=== PATIENT | male | born 1965 | race Caucasian/White ===

== ENCOUNTER 2024-04-30 17:25 | Emergency (ER) | payer OTHER, SELFPAY ==
[2024-04-30 17:28] VITALS: BP 155/96; PULSE 70; TEMP 36.7; O2SAT 99; BMI 31.5
--- NOTE | 2024-04-30 17:34 | PC.NURSE ---
right foot / ankle slightly larger then Left foot / ankle. ROM wnl and edema present in right foot.
--- NOTE | 2024-04-30 17:38 | XR_ITS ---
The [address] [address] Patient Name: XIAO NAVA MRN: [id number] date: 1965 Sex: M Assigned Patient Location: ER Current Patient Location: Accession/Order Number: [id number] Exam Date: 04/30/2024 18:00 Report Date: 04/30/2024 18:58 At the request of: PEDRO CLARK Procedure: XR foot RT min 3V EXAM: XR foot RT min 3V HISTORY: The patient is a 59-year-old male, right foot pain/swelling COMPARISON: None. FINDINGS: The right foot is radiographically negative with no evidence of fracture, dislocation, significant joint space narrowing, osteophytes, or other osseous or articular abnormalities. XR/XR foot RT min 3V IMPRESSION: Negative. Electronically authenticated by: WYATT WILSON Date: 04/30/2024 18:58
--- NOTE | 2024-04-30 17:40 | ED_ITS ---
HPI HPI - General Adult General Chief complaint: Extremity Injury, Lower Stated complaint: LE PAIN Time Seen by Provider: 04/30/24 17:29 Source: patient Mode of arrival: walk-in History of Present Illness HPI narrative: Patient is a 59-year-old male who presents to the emergency department for the evaluation of bilateral foot swelling, significantly worse on the right foot. Patient was referred to the emergency department by his PCP office for evaluation. He states 3 days ago he noted redness and swelling in the dorsum of the right foot. He states the ankle is now swollen although there is redness to the dorsum and lateral aspect of the right foot that is not present anywhere else. He denies any injuries or traumas. He states the right ankle is now swollen although not red. The dorsum of the left foot seems to be slightly swollen as well although he has not noticed any redness or red streaking to the foot. He has some pain in the right foot with extension of the foot at the ankle. 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 No fevers or vomiting. No history of diabetes. No medications taken prior to arrival. Related Data Previous Rx's ?Medication ?Instructions ?Recorded clindamycin HCl 150 mg capsule 300 mg (2 x 150 mg) PO Q6H 10 days 04/30/24 #80 caps ondansetron 4 mg disintegrating 4 mg PO Q6H PRN nausea and 04/30/24 tablet vomiting #12 tabs Allergies Allergy/AdvReac Type Severity Reaction Status Date / Time No Known Drug Allergies Allergy Verified 04/30/24 17:31 Opioid HPI Opioid Management Most Recent Opioid Data: No Data to Display Review of Systems ROS Constitutional Denies: fever or chills Ears, nose, mouth, and throat Denies: throat pain or nasal congestion Cardiovascular Denies: chest pain Respiratory Denies: shortness of breath or cough Gastrointestinal Denies: nausea or vomiting Musculoskeletal Denies: back pain Integumentary/Breast Reports: redness, skin pain, skin tenderness and skin swelling; Denies: rash Neurological Denies: numbness in extremities or weakness in extremities Hematologic/Lymphatic Denies: easy bruising or easy bleeding Exam Narrative Exam Narrative: Gen.: Awake, alert, in no distress Head: Normocephalic, atraumatic ENT: Moist mucous membranes Respiratory: No respiratory distress Extremities: Moves extremities equally, Minimal swelling of the dorsum of the left foot with 2+ left DP pulse. No redness or red streaking noted. Right foot is moderately swollen over the dorsum of the foot and moderately swollen in the right ankle. 2+ right DP pulse. Erythema noted from the lateral aspect of the dorsal right foot extending to the midfoot. No circumferential erythema or open wounds. No redness over the ankle joint. Normal flexion and extension of the toes of the right foot. Calves are soft and nontender Psych: Normal mood and affect Neuro: No focal neuro deficit Skin: Warm, dry, intact Constitutional Vital Signs, click to edit/add: Last Vital Signs Temp 98.0 F 04/30/24 17:28 Pulse 62 04/30/24 18:24 Resp 16 04/30/24 18:24 BP 131/86 04/30/24 18:24 Pulse Ox 98 04/30/24 18:24 O2 Del Method Room Air 04/30/24 17:28 Course Vital Signs Vital signs: Vital Signs Temperature 98.0 F 04/30/24 17:28 Pulse Rate 70 04/30/24 17:28 Respiratory Rate 16 04/30/24 17:28 Blood Pressure 155/96 H 04/30/24 17:28 Pulse Oximetry 99 04/30/24 17:28 Oxygen Delivery Method Room Air 04/30/24 17:28 Temperature 98.0 F 04/30/24 17:28 Pulse Rate 62 04/30/24 18:24 Respiratory Rate 16 04/30/24 18:24 Blood Pressure 131/86 04/30/24 18:24 Pulse Oximetry 98 04/30/24 18:24 Oxygen Delivery Method Room Air 04/30/24 17:28 Medical Decision Making [facility] Narrative Medical decision making narrative: Patient with normal labs, stable vital signs. Exam and history are consistent with cellulitis of the right foot. Patient encouraged to elevate his feet is much as possible. He is placed on clindamycin for home. Follow-up with PCP and return to the ER if symptoms change or worsen. SUPERVISED APC VISIT, PHYSICIAN ATTESTATION: Based on the medical record the care appears appropriate. ? Medical Records Medical records reviewed: Yes I reviewed the patient's medical records Lab Data Lab results reviewed: Yes I reviewed the patient's lab results Labs: Lab Results 04/30/24 Range/Units 18:01 WBC 5.5 (4.0-11.0) 10^3/uL RBC 4.12 L (4.70-6.10) 10^6/uL Hgb 13.4 L (14.0-18.0) g/dL Hct 38.9 L (42.0-54.0) % MCV 94.4 H (80.0-94.0) fL MCH 32.5 (25.9-34.0) pg MCHC 34.4 (29.9-35.2) g/dL RDW 12.0 (11.0-15.0) % Plt Count 187 (150-450) 10^3/uL MPV 9.5 (9.5-13.5) fL Neut % (Auto) 62.5 (43.0-75.0) % Lymph % (Auto) 25.9 (20.5-60.0) % Crisp % (Auto) 7.6 (1.7-12.0) % Eos % (Auto) 3.3 (0.9-7.0) % Baso % (Auto) 0.5 (0.2-2.0) % Neut # (Auto) 3.5 (1.4-6.5) 10^3/uL Lymph # (Auto) 1.4 (1.2-3.8) 10^3/uL Crisp # (Auto) 0.4 (0.3-0.8) 10^3/uL Eos # (Auto) 0.2 (0.0-0.7) 10^3/uL Baso # (Auto) 0.0 (0.0-0.1) 10^3/uL Abs Immat Gran (auto) 0.01 (0.00-0.03) 10^3/uL Imm/Tot Granulo (auto) 0.2 (0.0-0.5) % ESR 29 H (<=20) mm/hr Sodium 138 (136-145) mmol/L Potassium 3.8 (3.5-5.1) mmol/L Chloride 103 (98-107) mmol/L Carbon Dioxide 28.6 (21.0-32.0) mmol/L Anion Gap 10.2 BUN 18.0 (7.0-18.0) mg/dL Creatinine 0.95 (0.70-1.30) mg/dL Est GFR ( Amer) >60 (>=60) Est GFR (Non-Af Amer) >60 (>=60) BUN/Creatinine Ratio 18.9 Glucose 92 (74-106) mg/dL Lactate 1.2 (0.4-2.0) mmol/L Uric Acid 6.0 (3.5-7.2) mg/dL Calcium 9.0 (8.5-10.1) mg/dL Total Bilirubin 0.3 (0.2-1.0) mg/dL AST 20 (15-37) U/L ALT 44 (16-63) U/L Alkaline Phosphatase 88 (46-116) U/L C-Reactive Protein <0.50 (<=0.50) mg/dL Total Protein 7.5 (6.4-8.2) g/dL Albumin 3.8 (3.4-5.0) g/dL Globulin 3.7 g/dL Albumin/Globulin Ratio 1.0 Imaging Data xr foot: Attestation: I have reviewed the pertinent imaging results. Radiologist's impression: ITS Impressions Foot X-Ray 04/30/24 17:38 IMPRESSION: Negative. Electronically authenticated by: WYATT WILSON Date: 04/30/2024 18:58 Discharge Plan Discharge Stand Alone Forms: Portal Instructions Chief Complaint: Extremity Injury, Lower Clinical Impression: Cellulitis Patient Disposition: Home, Self-Care Time of Disposition Decision: 19:16 Condition: Good Prescriptions / Home Meds: New clindamycin HCl 150 mg capsule 300 mg PO Q6H 10 Days Qty: 80 0RF ondansetron 4 mg tablet,disintegrating 4 mg PO Q6H PRN (Reason: nausea and vomiting) Qty: 12 0RF Print Language: Syriac Instructions: Cellulitis (ED) Referrals: CELSO COREY [Primary Care Provider] - 1 week
[2024-04-30 18:24] VITALS: BP 131/86; PULSE 62; O2SAT 98
[2024-04-30 18:32] LABS: Basophils Percent Auto 0.5 % (0.2-2.0); Eosinophils Absolute Auto 0.2 10^3/uL (0.0-0.7); Eosinophils Percent Auto 3.3 % (0.9-7.0); Hematocrit 38.9 % (42.0-54.0); Hemoglobin 13.4 g/dL (14.0-18.0); Immature Granulocytes Abs Auto 0.01 10^3/uL (0.00-0.03); Immature Granulocytes Pct Auto 0.2 % (0.0-0.5); Lymphocytes Absolute Auto 1.4 10^3/uL (1.2-3.8); Lymphocytes Percent Auto 25.9 % (20.5-60.0); Mean Corpuscular HGB Conc 34.4 g/dL (29.9-35.2); Mean Corpuscular Hemoglobin 32.5 pg (25.9-34.0); Mean Corpuscular Volume 94.4 fL (80.0-94.0); Mean Platelet Volume 9.5 fL (9.5-13.5); Monocytes Absolute Auto 0.4 10^3/uL (0.3-0.8); Monocytes Percent Auto 7.6 % (1.7-12.0); Neutrophils Absolute Auto 3.5 10^3/uL (1.4-6.5); Neutrophils Percent Auto 62.5 % (43.0-75.0); Platelet Count 187 10^3/uL (150-450); Red Blood Count 4.12 10^6/uL (4.70-6.10); White Blood Count 5.5 10^3/uL (4.0-11.0)
[2024-04-30 18:56] LABS: Erythrocyte Sedimentation Rate 29 mm/hr (<=20)
[2024-04-30 18:58] LABS: Lactate/Lactic Acid 1.2 mmol/L (0.4-2.0)
[2024-04-30 19:05] LABS: Alanine Aminotransferase 44 U/L (16-63); Albumin Level 3.8 g/dL (3.4-5.0); Alkaline Phosphatase 88 U/L (46-116); Anion Gap 10.2; Aspartate Amino Transferase 20 U/L (15-37); BUN Creatinine Ratio 18.9; Bilirubin Total 0.3 mg/dL (0.2-1.0); C Reactive Protein <0.50 mg/dL (<=0.50); Carbon Dioxide 28.6 mmol/L (21.0-32.0); Chloride 103 mmol/L (98-107); Estimated GFR (African America >60 (>=60); Estimated GFR (Non-African Ame >60 (>=60); Globulin 3.7 g/dL; Glucose 92 mg/dL (74-106); Potassium 3.8 mmol/L (3.5-5.1); Sodium 138 mmol/L (136-145); Total Protein 7.5 g/dL (6.4-8.2)
== END 2024-04-30 19:46 | disposition home or self-care (01) ==
PROVIDERS: Physician Assistant; Emergency Provider Student in an Organized Health Care Education/Training Program; PCP Family Medicine
DX: L03.115 Cellulitis of right lower limb (principal)
CPT/HCPCS: 36415; 73630; 80053; 83605; 84550; 85025; 85652; 86140; 87040; 99284